=== PATIENT | female | born 1975 | race Caucasian/White ===

== ENCOUNTER 2024-08-23 06:46 | Inpatient (IN) | payer OTHER ==
[~2024-08-23] VITALS: Ht 162.6 cm; Wt 100.0 kg
[2024-08-23] MEDS: ONDANSETRON HCL 4 MG/2 ML VIAL IVP ONE (07:33)
[2024-08-23] MEDS: ChlordiazePOXIDE HCL 25 MG CAPSULE PO ONE (07:33)
[2024-08-23] MEDS: SODIUM CHLORIDE 0.9% 1,000 ML IV ONE (07:33)
[2024-08-23 07:38] LABS: EOSINOPHILS % (AUTO) 1.8 % (1.0-6.0); HEMATOCRIT 33.2 % (36-46); HEMOGLOBIN 10.3 g/dL (12.0-16.0); LYMPHOCYTES # (AUTO) 1.4 K/uL (1.0-4.8); LYMPHOCYTES % (AUTO) 26.5 % (22.0-44.0); MEAN CORPUSCULAR HEMOGLOBIN 23.6 pg (26.0-34.0); MEAN CORPUSCULAR HGB CONC 30.9 G/dL (31.0-37.0); MEAN CORPUSCULAR VOLUME 76 fL (80-100); MONOCYTES # (AUTO) 0.7 K/uL (0.1-1.0); NEUTROPHILS % (AUTO) 56.7 % (40.0-70.0); PLATELET COUNT (AUTO) 233 K/uL (150-450); RED BLOOD CELL COUNT(AUTO) 4.35 MIL/uL (4.00-5.20); RED CELL DISTRIBUTION WIDTH 18.2 % (11.5-14.5); WHITE BLOOD COUNT (AUTO) 5.2 K/uL (4.5-11.0)
[2024-08-23 07:52] LABS: ANION GAP 6 mmol/L (8-16); CALCIUM, TOTAL 8.3 mg/dL (8.8-10.5); CARBON DIOXIDE 27 mmol/L (22-29); CHLORIDE 107 mmol/L (98-107); CREATININE 0.91 mg/dL (0.60-1.30); GLOMERULAR FILTR. RATE CALC > 60 mL/min (>60); GLUCOSE,RANDOM 99 mg/dL (70-110); POTASSIUM 3.9 mmol/L (3.5-5.1); SODIUM SERUM 140 mmol/L (136-145); UREA NITROGEN, BLOOD 14 mg/dL (7-18)
[2024-08-23 07:54] LABS: TROPONIN I-HIGH SENSITIVITY 5 ng/L (<51)
[2024-08-23 07:56] LABS: ALANINE AMINOTRANSFERASE 22 U/L (12-78); ALBUMIN 3.1 g/dL (3.4-5.0); ALKALINE PHOSPHATASE 58 U/L (46-116); ASPARTATE AMINOTRANSFERASE 21 U/L (15-37); BILIRUBIN,TOTAL 0.2 mg/dL (0.1-1.0); TOTAL PROTEIN, SERUM 6.3 g/dL (6.4-8.2)
[2024-08-23 07:59] LABS: B-TYPE NATRIURETIC PEPTIDE 24 pg/mL (0-100)
[2024-08-23 08:17] LABS: ALCOHOL, BLOOD (SERUM) < 3 mg/dL (0-10)
[2024-08-23] MEDS ORDERED: ONDANSETRON HCL 4 MG/2 ML VIAL IVP PRN (08:45)
[2024-08-23] MEDS ORDERED: ZOLPIDEM TARTRATE 5 MG TABLET PO PRN (08:45)
[2024-08-23] MEDS ORDERED: LORazepam 2 MG/ML VIAL IVP PRN (08:45)
[2024-08-23] MEDS ORDERED: MAGNESIUM HYDROXIDE SUSPENSION 30 ML UDCUP PO PRN (08:45)
[2024-08-23] MEDS: FAMOTIDINE 20 MG TABLET PO SCH (09:09)
[2024-08-23 09:14] LABS: RBC MORPHOLOGY COMMENT ABNORMAL RBC MORPH
[2024-08-23] MEDS: 1: MAGNESIUM SULFATE 2 GM, MVI, ADULT NO.1 WITH VIT K 10 ML, THIAMINE 100 MG, FOLIC ACID IV SCH (11:34)
[2024-08-23 21:35] VITALS: BP 135/70; PULSE 59; RESP 17; TEMP 97.9; O2SAT 98
[2024-08-23] MEDS: ACETAMINOPHEN 325 MG TABLET PO PRN (21:39)
[2024-08-24 04:35] VITALS: BP 124/69; PULSE 57; RESP 18; TEMP 98.5; O2SAT 98
[2024-08-24 07:50] VITALS: BP 115/72; PULSE 57; RESP 18; TEMP 98.1; O2SAT 98
[2024-08-24 08:42] LABS: APPEARANCE,URINE CLEAR (CLEAR); BILIRUBIN,URINE NEGATIVE (NEGATIVE); COLOR,URINE YELLOW (YELLOW); GLUCOSE, URINE (UA) NEGATIVE (NEGATIVE); KETONES,URINE NEGATIVE (NEGATIVE); LEUKOCYTE ESTERASE ,URINE NEGATIVE (NEGATIVE); NITRATE,URINE NEGATIVE (NEGATIVE); OCCULT BLOOD,URINE NEGATIVE (NEGATIVE); PROTEIN,URINE NEGATIVE (NEGATIVE); SPECIFIC GRAVITIY, URINE 1.024 (1.003-1.030); UROBILINOGEN,URINE <=1.0 mg/dL (<=1.0)
[2024-08-24 08:45] LABS: ALCOHOL, URINE DRUG SCREEN NEGATIVE (NEGATIVE); AMPHET/METH SCREEN,URINE POSITIVE (NEGATIVE); BARBITURATE SCREEN, URINE NEGATIVE (NEGATIVE); BENZODIAZEPINES SCREEN,URINE POSITIVE (NEGATIVE); CANNABINOID SCREEN,URINE NEGATIVE (NEGATIVE); COCAINE SCREEN,URINE NEGATIVE (NEGATIVE); METHADONE SCREEN, URINE NEGATIVE (NEGATIVE); OPIATE SCREEN,URINE NEGATIVE (NEGATIVE); PHENCYCLIDINE SCREEN,URINE NEGATIVE (NEGATIVE)
[2024-08-24 20:15] VITALS: BP 133/80; PULSE 77; RESP 16; TEMP 97.5; O2SAT 100
[2024-08-25 07:51] VITALS: BP 121/73; PULSE 53; RESP 18; TEMP 97.9; O2SAT 98
[2024-08-25] MEDS ORDERED: MULT-1203 PO (15:15)
[2024-08-25 20:27] VITALS: BP 130/58; PULSE 58; RESP 18; TEMP 98.1; O2SAT 97
== END 2024-08-25 21:50 | DRG 897 ==
LOC: EMS 06:53 → EDH 08:44 → 6S 21:20
PROVIDERS: ADMIT Internal Medicine; ATTEND Internal Medicine
DX: F10.139 Alcohol abuse with withdrawal, unspecified (principal); E66.9 Obesity, unspecified; F15.13 Other stimulant abuse with withdrawal; D64.9 Anemia, unspecified; I10 Essential (primary) hypertension; Y90.0 Blood alcohol level of less than 20 mg/100 ml; F17.210 Nicotine dependence, cigarettes, uncomplicated; F41.9 Anxiety disorder, unspecified; Z68.37 Body mass index [BMI] 37.0-37.9, adult
CPT/HCPCS: 80048; 80076; 80307; 81003; 83735; 83880; 84484; 84703; 85025; 93005; 99285; G0480; J2405; J3411; J3475; J3490; J7030